=== PATIENT | female | born 1950 | race American Indian/Alaskan Native ===

== ENCOUNTER 2017-02-18 13:40 | Outpatient (CLI) | payer MEDICARE | END 2017-02-18 13:41 | disposition home or self-care (01) | LOC: LABHHL 13:40 | PROVIDERS: ATTEND Specialist | DX: D24.2 Benign neoplasm of left breast (principal) | CPT/HCPCS: 88305 ==

== ENCOUNTER 2017-08-10 09:40 | Outpatient (CLI) | payer MEDICARE, OTHER ==
[2017-08-10 10:37] LABS: Blood Urea Nitrogen 14 mg/dL (7-17)
--- NOTE | 2017-08-10 21:35 | Magnetic Resonance Report ---
FINAL REPORT EXAM: MR ABDOMEN WO/W CON HISTORY: ADRENAL NODULE MASS TECHNIQUE: Multiplanar multisequence pre and post gadolinium MR images of the abdomen were performed. 15 mL MultiHance was utilized for contrast enhancement Comparison: CTA chest 10/22/2015 demonstrating 3.2 x 2.4 centimeter adrenal lesion containing compatible with an adenoma. Absent spleen. FINDINGS: Exam is markedly motion degraded. Inphase and out of phase sequences demonstrate marked signal dropout from the lesion compatible with a benign fat containing lesion of adenoma. There is left basilar scar in the lungs. The coronal T1 weighted image demonstrates fat globule in the lesion which fat suppresses on the fat suppression technique sequences. There is scarring in the left lung base. There is normal enhancement of the remaining organs. Spleen is absent. IMPRESSION: 3.2 x 2.4 centimeter fat containing lesion with characteristics most suggestive of an adenoma.
== END 2017-08-10 09:41 | disposition home or self-care (01) ==
LOC: MRI 09:40
PROVIDERS: ATTEND Family Medicine
DX: E27.8 Other specified disorders of adrenal gland (principal); I10 Essential (primary) hypertension; K21.9 Gastro-esophageal reflux disease without esophagitis; Z87.891 Personal history of nicotine dependence
CPT/HCPCS: 36415; 74183; 82565; 84520; A9577